=== PATIENT | female | born 1990 | race African-American/Black ===

== ENCOUNTER 2020-04-21 22:48 | Emergency (ER) | payer MEDICAID ==
[~2020-04-21] VITALS: Ht 165.1 cm; Wt 63.5 kg
--- NOTE | 2020-04-21 22:54 | Emergency Room Report ---
History of Present Illness General Chief Complaint: Abdominal Pain Source: Patient, EMS Present Illness HPI This is a 30-year-old female with a history of gastrochisis at that required surgery. She is 7, para 4, A2. She presents with chief complaint abdominal pain and vomiting. She tested positive for urine at home 2 days ago. Unable to keep anything down for the last day. She says burning sensation in her stomach. Has body pain. No fever chills. No diarrhea. Previous was not like this. Pain is described as burning and 8 out of 10. No vaginal bleeding. 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 - 04/18/20 COVID-19 Screening: Negative COVID-19 COVID-19 Testing Source: work Patient History Past Medical History: see triage record, old chart reviewed Past Surgical History: other Pertinent Family History: none Social History: Denies: smoking Last Menstrual Period: february 2020 Now: Yes : 7 Para: 4 Immunizations: other Reviewed Nursing Documentation: PMH: Agreed; PSxH: Agreed Nursing Documentation-PMH Past Medical History: No Stated History Review of Systems Eye: Denies: eye pain, blurred vision ENT: Denies: ear pain, nose congestion, throat swelling Respiratory: Denies: cough, shortness of breath Cardiovascular: Denies: chest pain, palpitations Gastrointestinal: Reports: abdominal pain, nausea, vomiting; Denies: diarrhea Musculoskeletal: Denies: back pain, joint pain Skin: Denies: rash Neurological: Denies: headache, numbness Endocrine: Denies: increased thirst, increased urine Hematologic/Lymphatic: Denies: easy bruising All Other Systems: negative except mentioned in HPI Physical Exam Vital Signs Date Time Temp Pulse Resp B/P (MAP) Pulse Ox O2 Delivery O2 Flow Rate FiO2 04/21/20 22:46 97.5 76 18 137/56 (83) 98 Room Air Vitals normal Sp02 EP Interpretation: reviewed, normal General Appearance: well appearing, no apparent distress, alert Head: normocephalic, atraumatic Eyes: bilateral eye PERRL, bilateral eye EOMI ENT: hearing grossly normal, normal pharynx Neck: full range of motion, supple, no meningismus Respiratory: chest non-tender, lungs clear, normal breath sounds Cardiovascular #1: regular rate, rhythm, no murmur Gastrointestinal: normal bowel sounds, non tender, no mass, no organomegaly, no bruit, non-distended Musculoskeletal: back normal, normal range of motion, gait/station normal Psychiatric: mood/affect normal Medical Decision Making Diagnostic Impression: Primary Impression: Hyperemesis gravidarum Additional Impression: Hypokalemia ER Course Patient presents with vomiting in . Her beta hCG is 3 but ultrasound show gestational sac with IUP and heart rate of 120s. I suspect this may be a lab error and I asked the tech to run it again. Patient felt much better now. Tolerating p.o. intake. No evidence of ectopic. Will discharge home. CT/MRI/US Diagnostic Results CT/MRI/US Diagnostic Results : Imaging Test Ordered: OB ultrasound Impression Read by consumer relations complaint clerk. IUP at 6 weeks with good heart tone. Last Vital Signs Date Time Temp Pulse Resp B/P (MAP) Pulse Ox O2 Delivery O2 Flow Rate FiO2 04/21/20 22:46 97.5 76 18 137/56 (83) 98 Room Air Status: improved Disposition: HOME, SELF-CARE Condition: Improved Scripts Ondansetron (Zofran) 4 Mg Tablet 4 MG ORAL Q6H PRN for Nausea & Vomiting, #30 TAB 0 Refills Prov: Spencer Martinez MD 04/22/20 Additional Instructions: Advance diet as tolerated. Follow-up with your [employer] KNOCKOUT WORKER in a week. Return if symptoms worsen. Spencer Martinez MD Apr 21, 2020 22:54
--- NOTE | 2020-04-21 23:05 | NUR ---
ED Nurse Note: Recieved pt walk in from home with c/o vomiting and abd pain with , pt states she is about 7 weeks preg and c/o nausea and vomiting for past 2-3 days, pt also c/o high anxiety due to father of baby passing, pt denies bleeding but states cant keep food down, able to keep some fluids down but not most, denies sob or cough, fever, diarrhea or any other complications, pt is G7-P4, denies any other complaints or discomforts.
[2020-04-21 23:13] LABS: BASOPHILS % (AUTO) 1.2 % (0.0-2.0); HEMATOCRIT 39.6 % (37.0-47.0); HEMOGLOBIN 13.3 G/DL (12.0-16.0); LYMPHOCYTES % (AUTO) 19.7 % (20.0-45.0); MEAN CORPUSCULAR VOLUME 89 FL (80-99); MONOCYTES % (AUTO) 5.3 % (1.0-10.0); NEUTROPHILS % (AUTO) 73.8 % (45.0-75.0); PLATELET COUNT 362 K/UL (150-450); RED BLOOD COUNT 4.46 M/UL (4.20-5.40); RED CELL DISTRIBUTION WIDTH 12.6 % (11.6-14.8); WHITE BLOOD COUNT 9.8 K/UL (4.8-10.8)
[2020-04-21 23:28] LABS: ANION GAP 12 mmol/L (5-15); BLOOD UREA NITROGEN 7 mg/dL (7-18); CALCIUM 9.8 MG/DL (8.5-10.1); CARBON DIOXIDE 26 MMOL/L (21-32); CHLORIDE 99 MMOL/L (98-107); POTASSIUM 2.8 MMOL/L (3.5-5.1); SODIUM 137 MMOL/L (136-145)
[2020-04-21 23:35] LABS: ALANINE AMINOTRANSFERASE 22 U/L (12-78); ALBUMIN 4.8 G/DL (3.4-5.0); ALBUMIN/GLOBULIN RATIO 1.1 (1.0-2.7); ALKALINE PHOSPHATASE 61 U/L (46-116); ASPARTATE AMINO TRANSFERASE 16 U/L (15-37); BILIRUBIN,TOTAL 1.3 MG/DL (0.2-1.0)
[2020-04-21 23:45] LABS: BILIRUBIN,DIRECT 0.4 MG/DL (0.0-0.3)
[2020-04-22 00:15] VITALS: BP 131/66
--- NOTE | 2020-04-22 00:30 | NUR ---
ED Nurse Note: Pt IV line placed, labs drawn, pt was actively vomiting but stopped after meds, pain remains but is less, no bleeding, pt still unable to give urine, MD aware, pt also medicated with oral potassium and tolerated well so far, pt waiting for ultrasound, remains on cardiac monitoring, v/s stable, o2 mas=687% on ra, no acute changes or increased distress noted, will continue to closely monitor.
[2020-04-22] MEDS ORDERED: ZOFRAN4 MG ORAL (01:46)
--- NOTE | 2020-04-22 02:25 | NUR ---
ED Nurse Note: Pt being prepared for discharge, given oral trial and had emesis again, MD informed, pt re-medicated for nausea, pt ask to rest more before d/c, states ok, will allow pt to sleep and awaken in am for discharge, saline lock removed per pt request. nad noted pt resting.
--- NOTE | 2020-04-22 02:29 | Diagnostic Imaging Report ---
EXAM: US First Trimester , Transabdominal and Transvaginal CLINICAL HISTORY: ABD PAIN TECHNIQUE: Real-time transabdominal and transvaginal obstetrical ultrasound of the maternal pelvis and a first trimester with image documentation. Transvaginal imaging was used for better evaluation of the fetus and adnexa. COMPARISON: No relevant prior studies available. FINDINGS: Gestation: Single viable intrauterine gestation. Ultrasound age 6 weeks 1 day. CRL 0.4 cm, 6 weeks 1 day. Yolk sac 0.3 cm heart rate 114 bpm Placenta/amniotic fluid: Cannot be adequately evaluated due to the early gestational age. Uterus/cervix: Cervix 3.1 cm No myometrial mass. Ovaries: Right ovary 3.2 cm. Left ovary 3 cm No mass. Free fluid: No free fluid. Other findings: No acute abnormality seen. MSD 1.7 cm, 6 weeks 0 days. IMPRESSION: 1. Single viable intrauterine gestation. 2. No acute abnormality seen. 3. Ultrasound age 6 weeks 1 day.
--- NOTE | 2020-04-22 03:19 | NUR ---
ED Nurse Note: Pt sleeping, no emesis, v/s stable, no sob or labored breathing, 02 sat=99% on RA, will continue to allow pt to rest before d/c to home.
[2020-04-22 05:00] VITALS: BP 131/66
--- NOTE | 2020-04-22 05:00 | NUR ---
ER DISCHARGE NOTE: Patient is cleared to be discharged per ERMD, pt is aox4, on room air, with stable vital signs. pt was given dc and prescription instructions, pt was able to verbalize understanding, pt id band and iv site removed without complications. pt is able to ambulate with steady gait. pt took all belongings.
[2020-04-23] MEDS ORDERED: NITROFURANTOIN100 M2 ORAL (02:24)
== END 2020-04-22 05:00 | disposition home or self-care (01) ==
LOC: EDBD 22:48 → EMR 23:05
DX: O21.0 Mild hyperemesis gravidarum (principal); Z3A.01 Less than 8 weeks gestation of pregnancy; E87.6 Hypokalemia
CPT/HCPCS: 36415; 76801; 76817; 80053; 82248; 83690; 84702; 84703; 85025; 96361; 96374; 96376; J2405; J7030; Z7502; 99284; J8499

== ENCOUNTER 2020-04-22 22:17 | Emergency (ER) | payer MEDICAID ==
[~2020-04-22] VITALS: Ht 167.6 cm; Wt 68.0 kg
[~2020-04-22 22:17] MED LIST: ZOFRAN4 MG ORAL
[2020-04-22] MEDS ORDERED: D5NS 1,000 ML IV ONE (22:30)
[2020-04-22] MEDS ORDERED: Morphine Sulfate 4mg/ml Inj (IV USE ONLY) IVP ONE (22:30)
[2020-04-22] MEDS ORDERED: Metoclopramide 10mg/2ml Inj IVP ONE (22:30)
--- NOTE | 2020-04-22 22:30 | Emergency Room Report ---
History of Present Illness General Source: Patient, Medical Record, EMS Present Illness HPI This is a 30-year-old female who is 7, P4, A2 approximately 6 weeks and 2 days . I saw her yesterday for the same complaint. She presents with chief complaint of abdominal cramping pain with nausea and vomiting. Unable to keep anything down. She had ultrasound yesterday which showed that she was 6 weeks and 1 day with good heartbeat. She denies any vaginal bleeding. She was doing better when she was here but when she got home things did not improve. She actually tolerated p.o. intake here. Pain is crampy and burning in nature. Pain is 8 out of 10. She is retching. No blood. Allergies: Coded Allergies: No Known Allergies (Unverified , 04/21/20) COVID-19 Screening Contact w/high risk pt: No Experienced COVID-19 symptoms?: No Patient History Past Medical History: see triage record, old chart reviewed Past Surgical History: none Pertinent Family History: none Social History: Denies: smoking Now: Yes Immunizations: other Reviewed Nursing Documentation: PMH: Agreed; PSxH: Agreed Review of Systems Eye: Denies: eye pain, blurred vision ENT: Denies: ear pain, nose congestion, throat swelling Respiratory: Denies: cough, shortness of breath Cardiovascular: Denies: chest pain, palpitations Gastrointestinal: Reports: abdominal pain, nausea, vomiting; Denies: diarrhea Musculoskeletal: Denies: back pain, joint pain Skin: Denies: rash Neurological: Denies: headache, numbness Endocrine: Denies: increased thirst, increased urine Hematologic/Lymphatic: Denies: easy bruising All Other Systems: negative except mentioned in HPI Physical Exam Vitals unremarkable Sp02 EP Interpretation: reviewed, normal General Appearance: well appearing, no apparent distress, alert Head: normocephalic, atraumatic Eyes: bilateral eye PERRL, bilateral eye EOMI ENT: hearing grossly normal, normal pharynx Neck: full range of motion, supple, no meningismus Respiratory: chest non-tender, lungs clear, normal breath sounds Cardiovascular #1: regular rate, rhythm, no murmur Gastrointestinal: normal bowel sounds, non tender, no mass, no organomegaly, no bruit, non-distended Musculoskeletal: back normal, normal range of motion, gait/station normal Psychiatric: mood/affect normal Medical Decision Making Diagnostic Impression: Primary Impression: Hyperemesis gravidarum ER Course This patient presents with symptoms consistent with hyperemesis gravidarum. She is also has a change in her urine so we will treat for UTI. She already had ultrasound done yesterday to confirm live IUP. She said that she has an appointment for an elective tomorrow. She felt better now. Will di scharge home. Status: improved Disposition: HOME, SELF-CARE Condition: Stable Scripts Nitrofurantoin Monohyd/M-Cryst* (MACROBID 100 MG*) 100 Mg Capsule 100 MG ORAL EVERY 12 HOURS, #14 CAP Prov: Spencer Martinez MD 04/23/20 Additional Instructions: Follow-up with your doctor in 2 to 3 days if not better. return if symptoms worsen. Spencer Martinez MD Apr 22, 2020 22:30
[2020-04-22 22:55] VITALS: BP 134/85
[2020-04-23 00:32] LABS: BILIRUBIN, URINE NEGATIVE (NEGATIVE); COLOR,URINE PALE YELLOW; GLUCOSE, URINE (UA) 4+ (NEGATIVE); KETONES,URINE 4+ (NEGATIVE); LEUKOCYTE ESTERASE ,URINE 2+ (NEGATIVE); NITRITE,URINE NEGATIVE (NEGATIVE); PH,URINE 7 (4.5-8.0); PROTEIN,URINE NEGATIVE (NEGATIVE); UROBILINOGEN,URINE 1 MG/DL (0.0-1.0)
--- NOTE | 2020-04-23 00:34 | NUR ---
urine collected and sent to lab
--- NOTE | 2020-04-23 00:44 | NUR ---
pt vomiting. aware. pt medicated per mar
[2020-04-23 00:46] LABS: APPEARANCE,URINE SLIGHTLY CLOUDY
[2020-04-23] MEDS ORDERED: cefTRIAXone 1 GM in NS 55 ML IVPB ONE (01:15)
--- NOTE | 2020-04-23 01:23 | NUR ---
pt medicated per apr. connected to monitor. v/s stable. pt in no distress. will continue to monitor pt
[2020-04-23] MEDS ORDERED: NITROFURANTOIN100 M2 ORAL (02:24)
--- NOTE | 2020-04-23 02:25 | NUR ---
pt aox3. given and understands discharge isntructions. ambulatory out w steady gait
== END 2020-04-23 02:48 | disposition home or self-care (01) ==
LOC: EDBD 22:17 → EDUNIT# 22:17 → EMR 22:45
DX: O21.0 Mild hyperemesis gravidarum (principal); O23.41 Unspecified infection of urinary tract in pregnancy, first trimester; Z3A.01 Less than 8 weeks gestation of pregnancy
CPT/HCPCS: 80307; 81003; 87086; 96361; 96365; 96367; 96375; J0696; J2270; J2405; J2765; J7030; Z7502; 99284